=== PATIENT | female | born 1965 | race Caucasian/White ===

== ENCOUNTER 2017-05-19 06:48 | Emergency (ER) | payer BC ==
--- NOTE | 2017-05-19 07:49 | RAD ---
TWO VIEWS CHEST: Date: 05-19-17 Provided Clinical History: Right sided rib pain status post fall. FINDINGS: Comparison is made with the study dated 08-29-12. The cardiac silhouette is upper limits of normal in s ize. The lungs appear clear. There is no pleural fluid or pneumothorax apparent. Degenerative changes are seen involving the thoracic spine. IMPRESSION: No evidence for an acute cardiopulmonary process. POS: [facility]
[2017-05-19] MEDS ORDERED: Ketorolac Tromethamine 60 MG/2 ML VIAL ONE (09:21)
== END 2017-05-19 09:53 | disposition home or self-care (01) ==
LOC: ERS 06:48
DX: S20.211A Contusion of right front wall of thorax, initial encounter (principal); I10 Essential (primary) hypertension; F32.9 Major depressive disorder, single episode, unspecified; W01.190A Fall on same level from slipping, tripping and stumbling with subsequent striking against furniture, initial encounter
CPT/HCPCS: 71020; 96372; J1885

== ENCOUNTER 2017-09-18 21:18 | Observation (INO) | payer BC ==
[2017-09-18 21:55] LABS: #Eosinphils 0.3 thou/uL (0.0-0.7); #Monocytes 0.7 thou/uL (0.11-0.59); #Neutrophils 8.4 thou/uL (1.40-6.50); %Basophils 0.3 % (0.0-1.0); %Eosinophils 2.5 % (0.0-10.0); %Lymphocytes 24.4 % (21.0-51.0); %Monocytes 5.3 % (0.0-10.0); %Neutrophils 67.5 % (42.0-75.0); Hemoglobin 14.6 g/dL (12.0-16.0); Mean Corpuscular HGB CONC 34.2 g/dL (32.0-36.0); Mean Corpuscular Hemoglobin 29.4 pg (27.0-31.0); Mean Corpuscular Volume 85.8 fl (81.0-99.0); Mean Platelet Volume 7.8 fL (7.4-10.4); Platelet Count 232 thou/uL (130-400); RBC Distribution Width 13.5 % (11.5-14.5); Red Blood Cell (RBC) Count 4.96 mill/uL (4.20-5.40); White Blood Cell (WBC) Count 12.4 thou/uL (4.8-10.8)
[2017-09-18 22:16] LABS: ALT (SGPT) 16 U/L (8-55); AST (SGOT) 14 U/L (5-34); Alkaline Phosphatase 98 U/L (40-150); Anion Gap 15 mmol/L (10-20); BUN (Urea Nitrogen) 31 mg/dL (9.8-20.1); Bilirubin, Total 0.4 mg/dL (0.2-1.2); Calc. Creatinine Clearance 0 mL/min (70-130); Calcium 9.2 mg/dL (7.8-10.44); Carbon Dioxide 22 mmol/L (22-29); Chloride 107 mmol/L (98-107); Estimated GFR-MDRD 87; Globulin 3.1 g/dL (2.4-3.5); Glucose 146 mg/dL (70-105); Potassium 3.9 mmol/L (3.5-5.1); Protein, Total 7.1 g/dL (6.0-8.3); Sodium 140 mmol/L (136-145)
[2017-09-18 22:21] LABS: CKMB 1.1 ng/mL (0-6.6); Troponin I Less than 0.010 ng/mL (< 0.028)
--- NOTE | 2017-09-18 22:21 | RAD ---
PORTABLE CHEST ONE VIEW 09/18/17 at 9:59 p.m. HISTORY: Chest pain. FINDINGS: Comparison made with exam of 12/15/13. The heart size is borderline. No focal areas of consolidation, pneumothorax, phyllis pulmonary edema or pleural effusions are seen. IMPRESSION: No radiographic evidence of acute cardiopulmonary process. POS: [facility]
[2017-09-18 22:57] LABS: BHCG - Serum Negative (NEGATIVE); Pregs Control Background? CLEAR/WHITE (CLR/WHITE); Pregs Control Bar Appear? YES (CONTROL BAR)
[2017-09-19] MEDS ORDERED: Ondansetron PF 4 MG/2 ML Vial IVP PRN (01:04)
[2017-09-19] MEDS ORDERED: Acetaminophen 325 MG TAB PO PRN (01:04)
[2017-09-19] MEDS ORDERED: Ondansetron ODT 4 MG TAB SL PRN (01:04)
[2017-09-19 01:34] VITALS: BMI 51.2
[2017-09-19 02:01] LABS: Troponin I Less than 0.010 ng/mL (< 0.028)
[2017-09-19 05:18] LABS: Troponin I Less than 0.010 ng/mL (< 0.028)
[2017-09-19 12:08] VITALS: BP 135/80; TEMP 97.6
--- NOTE | 2017-09-20 23:23 | SS ---
DATE OF ADMISSION: 09/18/2017 CHIEF COMPLAINT: Chest palpitations. HISTORY OF PRESENT ILLNESS: This is a 52-year-old female, patient of Dr. Kin Etienne, wh o came to the emergency room after having a spontaneous onset of palpitations with facial numbness. She was at [facility] and noticed that her chest was feeling strange, felt lot of palpitations, and then she started to feel her face from her nose over to her ear left side was numb and that started to sc are her, so she came to the emergency room. On note, she said she was told she was red from her clav icles up when she arrived. She notes that she had been on Augmentin for about 3 to 4 days for sinus infection and she said she has never been on Augmentin before, and so the emergency room physician __ ___ EKG and has numerous PVCs and decided to have her admitted for chest pain rule out. PAST MEDICAL HISTORY: She has hypertension, chronic depression and morbid obesity. PAST SURGICAL HISTORY: She has had a total abdominal hysterectomy in 2007, inguinal hernia repair in 1990, and a bilateral tubal ligation in 1985. ALLERGIES: She has no known drug allergies. MEDICATIONS: Valsartan and hydrochlorothiazide 325/12.5 takes 1 a day, Lasix 40 mg a day, Zoloft 100 mg a day and Wellbutrin 150 mg a day. FAMILY HISTORY: Father has hearing loss. Mother has coronary artery disease, had an OR, hypertensio n and type 2 diabetes. Of note, she has a son who was a Marine and has a traumatic brain injury as w ell as some PTSD. SOCIAL HISTORY: She is . 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 She has no alc ohol, tobacco or illicit drug use habits. REVIEW OF SYSTEMS: She denies any headache or visual changes. No trouble chewing or swallowing. Sh e denies any chest pain, shortness of breath or cough. She denies any nausea, vomiting, or abdominal pain. She notes no changes to bowel or bladder habits. No dysuria or hematuria. No melena, hemato chezia or bright red blood per rectum. She notes no paresis or paresthesias. She notes no changes t o her psych issues on and off again with depression, especially associated with her son, but she has not had any suicidal or homicidal ideations. She has not had any auditory or visual hallucinations. PHYSICAL EXAMINATION: GENERAL: She is sitting in bed, no acute distress. VITAL SIGNS: Temperature is 97.5, pulse 85, respirations 20, blood pressure 139/42. HEENT: Shows normocephalic and atraumatic cranium with pupils that are equal, round, reactive to lig ht and accommodation. Extraocular movements are intact. Mucous membranes are moist. Her maxillary sinuses are nontender to palpation. NECK: Supple. No JVD. No bruits. No thyromegaly. LUNGS: Clear to auscultation bilaterally. HEART: S1, S2 with no rubs, murmurs, gallops, heaves or lifts. ABDOMEN: Obese, soft, nontender and nondistended. GENITOURINARY: Deferred. NEUROLOGIC: She is alert and oriented x4. No acute distress. Cranial nerves II-XII are equal and s ymmetrical. Motor and sensory are intact. No deficits noted. LABORATORY DATA: White count 12.4, hemoglobin and hematocrit are 14 and 42 respectively with 232,000 platelets. Sodium is 140, potassium 3.9, chloride 107, bicarb 22, BUN creatinine 0.7, glucose 146. Troponin is undetectable x3. CK-MB is 1.1. IMAGING: Chest x-ray is negative for any pathology. EKG showed PVCs. ASSESSMENT: Premature ventricular contractions with negative cardiac ischemic work up. Plan is to d ischarge home, possible Augmentin as the etiology. PLAN: We had the stopped the Augmentin and changed to a daily or twice a day nasal lavage. We will start also metoprolol 25 mg daily and have her follow up with Dr. Etienne in one week.
--- NOTE | 2017-09-20 23:38 | DIS ---
DATE OF ADMISSION: 09/18/2017 DATE OF DISCHARGE: 09/19/2017 ADMITTING DIAGNOSIS: Premature ventricular contractions. DISCHARGE DIAGNOSIS: Premature ventricular contractions with negative chest pain rule out. HOSPITAL COURSE: A 52-year-old female, patient of Dr. Kin Etienne, came in when she got worried about having chest palpitations along with feeling left side of her face feeling a little num b. Workup is essentially negative other than PVCs. Working theory Augmentin that she has callie vogt been on before, irritating heart, so she was being sent home. The plan is to stop the Augmentin an d changed to the daily or twice a day lavage since she had no longer has any sinus symptoms, as well as add metoprolol ER 25 mg daily and continue her regular home meds of the valsartan and hydrochlorot hiazide 325/12.5, Lasix 40 mg daily, Zoloft 100 mg daily, Wellbutrin 150 mg daily, and she will see Colton Etienne in a week.
--- NOTE | 2017-11-06 15:29 | EKG ---
Test Reason : Blood Pressure : / mmHG Vent. Rate : 096 BPM Atrial Rate : 096 BPM P-R Int : 148 ms QRS Dur : 100 ms QT Int : 386 ms P-R-T Axes : 033 -30 038 degrees QTc Int : 487 ms Sinus rhythm with frequent Premature ventricular complexes Left axis deviation Minimal voltage criteria for LVH, may be normal variant Prolonged QT No STEMI Abnormal ECG Confirmed by FRANDY HELTON ([id number]), international editorial producer JOEL STONE ([id number]) on 11/06/2017 3:29:07 PM Referred By: Confirmed By:FRANDY HELTON
== END 2017-09-19 14:17 | disposition home or self-care (01) ==
LOC: ERS 21:18 → 2SW 23:00
PROVIDERS: ADMIT Family Medicine; ATTEND Family Medicine
DX: I49.3 Ventricular premature depolarization (principal); R20.0 Anesthesia of skin; I10 Essential (primary) hypertension; F32.9 Major depressive disorder, single episode, unspecified; E66.01 Morbid (severe) obesity due to excess calories; Z68.43 Body mass index [BMI] 50.0-59.9, adult; Z79.899 Other long term (current) drug therapy
CPT/HCPCS: 36415; 71045; 80053; 82553; 84484; 84703; 85025; 85379; 93005; G0378

== ENCOUNTER 2023-04-03 18:13 | Inpatient (IN) | payer BC ==
[2023-04-03 18:48] LABS: #Basophils 0.1 thou/uL (0.0-0.2); #Eosinphils 0.3 thou/uL (0.0-0.7); #Monocytes 0.8 thou/uL (0.11-0.59); #Neutrophils 7.4 thou/uL (1.40-6.50); %Basophils 0.5 % (0.0-1.0); %Eosinophils 2.6 % (0.0-10.0); %Lymphocytes 22.6 % (21.0-51.0); %Monocytes 7.2 % (0.0-10.0); %Neutrophils 66.6 % (42.0-75.0); Hematocrit 46.5 % (36.0-47.0); Hemoglobin 14.9 g/dL (12.0-16.0); Mean Corpuscular Hemoglobin 28.7 pg (27.0-31.0); Mean Corpuscular Volume 89.6 fl (78.0-98.0); Mean Platelet Volume 10.8 fL (7.4-10.4); Platelet Count 260 10x3/uL (130-400); RBC Distribution Width 13.8 % (11.5-14.5); Red Blood Cell (RBC) Count 5.19 mill/uL (4.20-5.40)
[2023-04-03 19:05] LABS: ALT (SGPT) 14 U/L (8-55); AST (SGOT) 13 U/L (5-34); Albumin 4.1 g/dL (3.5-5.0); Alkaline Phosphatase 88 U/L (40-110); Anion Gap 16 mmol/L (10-20); BUN (Urea Nitrogen) 18 mg/dL (9.8-20.1); Bilirubin, Total 0.5 mg/dL (0.2-1.2); Calc. Creatinine Clearance 0 mL/min (70-130); Calcium 9.3 mg/dL (7.8-10.44); Carbon Dioxide 25 mmol/L (22-29); Chloride 102 mmol/L (98-107); Estimated GFR 90; Globulin 2.6 g/dL (2.4-3.5); Glucose 216 mg/dL (70-105); Lipase 33 U/L (8-78); Potassium 3.6 mmol/L (3.5-5.1); Protein, Total 6.7 g/dL (6.0-8.3); Sodium 139 mmol/L (136-145)
[2023-04-03 19:10] LABS: Troponin I Less than 0.010 ng/mL (< 0.028)
[2023-04-03] MEDS ORDERED: Magnesium 2 GM/50 ML BAG (IN WATER) ONE (19:15)
[2023-04-03] MEDS ORDERED: Acetaminophen 325 MG TAB PO PRN (21:20)
[2023-04-03] MEDS ORDERED: Ondansetron PF 4 MG/2 ML Vial IVP PRN (21:20)
[2023-04-03] MEDS ORDERED: Dextrose 5% in Water 1,000 ML IV PRN (21:22)
[2023-04-03] MEDS ORDERED: HumaLOG 300 UNITS/3 ML VIAL SC PRN ×2 (21:22)
[2023-04-03] MEDS ORDERED: Dextrose 50% Abboject 50 ML SYRINGE SLOW IVP PRN (21:22)
[2023-04-03] MEDS ORDERED: Glucagon 1 MG/ML KIT IM PRN (21:22)
[2023-04-03] MEDS ORDERED: Metoprolol Tartrate 25 MG TAB PO SCH (21:30)
[2023-04-03] MEDS ORDERED: Aspirin Chewable 81 MG TAB ONE (21:38)
[2023-04-03 21:51] LABS: Magnesium 1.9 mg/dL (1.6-2.6)
[2023-04-03 22:35] LABS: Amphetamine Not Detected (NotDetected); Barbiturates Screen Not Detected (NotDetected); Benzodiazepine Screen Not Detected (NotDetected); Cocaine Metabolite Screen Not Detected (NotDetected); Methadone Not Detected (NotDetected); Methamphetamine Not Detected (NotDetected); Opiate Screen Not Detected (NotDetected); Oxycodone Screen Not Detected (NotDetected); Phencyclidine (PCP) Not Detected (NotDetected); THC/Cannabinoid Screen Not Detected (NotDetected); Tricyclic Screen Not Detected (NotDetected)
[2023-04-03 22:48] LABS: Troponin I Less than 0.010 ng/mL (< 0.028)
[2023-04-03] MEDS ORDERED: Metoprolol Tartrate 25 MG TAB ONE (23:49)
[2023-04-04 02:03] LABS: Troponin I Less than 0.010 ng/mL (< 0.028)
[2023-04-04 04:57] VITALS: BMI 54.3
[2023-04-04 05:45] LABS: #Basophils 0.1 thou/uL (0.0-0.2); #Eosinphils 0.3 thou/uL (0.0-0.7); #Monocytes 0.7 thou/uL (0.11-0.59); #Neutrophils 6.4 thou/uL (1.40-6.50); %Basophils 0.6 % (0.0-1.0); %Eosinophils 2.6 % (0.0-10.0); %Lymphocytes 26.5 % (21.0-51.0); %Monocytes 7.1 % (0.0-10.0); %Neutrophils 62.6 % (42.0-75.0); Hematocrit 44.2 % (36.0-47.0); Hemoglobin 14.3 g/dL (12.0-16.0); Mean Corpuscular HGB CONC 32.4 g/dL (32.0-36.0); Mean Corpuscular Hemoglobin 28.8 pg (27.0-31.0); Mean Corpuscular Volume 89.1 fl (78.0-98.0); Mean Platelet Volume 11.2 fL (7.4-10.4); Platelet Count 226 10x3/uL (130-400); RBC Distribution Width 14.3 % (11.5-14.5); Red Blood Cell (RBC) Count 4.96 mill/uL (4.20-5.40); White Blood Cell (WBC) Count 10.2 10x3/uL (4.8-10.8)
[2023-04-04 05:51] LABS: Hemoglobin A1c 7.4 % (4.0-6.0)
[2023-04-04 06:16] LABS: Anion Gap 14 mmol/L (10-20); BUN (Urea Nitrogen) 17 mg/dL (9.8-20.1); Calc. Creatinine Clearance 225 mL/min (70-130); Calcium 9.3 mg/dL (7.8-10.44); Carbon Dioxide 24 mmol/L (22-29); Cardiac Risk 5.6 (Less than 4.5); Chloride 105 mmol/L (98-107); Cholesterol 186 mg/dl (< 200 Desired); Estimated GFR 101; Glucose 167 mg/dL (70-105); HDL Cholesterol 33 mg/dL (>60 Neg Risk); LDL Cholesterol, Calculated 127 mg/dL; Magnesium 2.4 mg/dL (1.6-2.6); Potassium 3.4 mmol/L (3.5-5.1); Sodium 140 mmol/L (136-145); Triglycerides 131 mg/dL (Less than 150)
[2023-04-04] MEDS ORDERED: Metoprolol Tartrate 25 MG TAB ONE (08:45)
[2023-04-04] MEDS ORDERED: Furosemide 40 MG TAB ONE (08:45)
[2023-04-04] MEDS ORDERED: Losartan 25 MG TAB ONE (08:53)
[2023-04-04] MEDS ORDERED: Metoprolol Tartrate 25 MG TAB PO SCH (09:00)
[2023-04-04] MEDS: Empagliflozin 25 MG TAB PO SCH (09:26)
[2023-04-04] MEDS: Losartan 25 MG TAB PO SCH (09:27)
[2023-04-04] MEDS: Hydrochlorothiazide 25 MG TAB PO SCH (09:27)
[2023-04-04] MEDS: Furosemide 40 MG TAB PO SCH ×2 (09:27→14:26)
[2023-04-04] MEDS ORDERED: Potassium Chloride 20 MEQ TAB PO SCH (10:15)
[2023-04-05 06:32] LABS: #Basophils 0.1 thou/uL (0.0-0.2); #Eosinphils 0.3 thou/uL (0.0-0.7); #Monocytes 0.6 thou/uL (0.11-0.59); #Neutrophils 5.9 thou/uL (1.40-6.50); %Basophils 0.7 % (0.0-1.0); %Eosinophils 2.7 % (0.0-10.0); %Lymphocytes 30.8 % (21.0-51.0); %Monocytes 6.4 % (0.0-10.0); Hematocrit 45.3 % (36.0-47.0); Hemoglobin 14.7 g/dL (12.0-16.0); Mean Corpuscular HGB CONC 32.5 g/dL (32.0-36.0); Mean Corpuscular Hemoglobin 28.8 pg (27.0-31.0); Mean Corpuscular Volume 88.8 fl (78.0-98.0); Mean Platelet Volume 11.6 fL (7.4-10.4); Platelet Count 254 10x3/uL (130-400); RBC Distribution Width 14.3 % (11.5-14.5); White Blood Cell (WBC) Count 9.9 10x3/uL (4.8-10.8)
[2023-04-05 07:44] LABS: Anion Gap 15 mmol/L (10-20); BUN (Urea Nitrogen) 18 mg/dL (9.8-20.1); Calc. Creatinine Clearance 201 mL/min (70-130); Calcium 9.6 mg/dL (7.8-10.44); Carbon Dioxide 27 mmol/L (22-29); Chloride 103 mmol/L (98-107); Estimated GFR 92; Glucose 161 mg/dL (70-105); Magnesium 2.3 mg/dL (1.6-2.6); Potassium 3.2 mmol/L (3.5-5.1); Sodium 142 mmol/L (136-145)
[2023-04-05] MEDS: BuPROPion XL 150 MG ER.TAB PO SCH (09:13)
[2023-04-05] MEDS: Losartan 25 MG TAB PO SCH (09:13)
[2023-04-05] MEDS: Empagliflozin 25 MG TAB PO SCH (09:13)
[2023-04-05] MEDS: Hydrochlorothiazide 25 MG TAB PO SCH (09:13)
[2023-04-05] MEDS: Potassium Chloride 20 MEQ TAB PO SCH (16:48)
[2023-04-06 06:43] LABS: Magnesium 2.2 mg/dL (1.6-2.6)
[2023-04-06 07:35] VITALS: BP 114/58; TEMP 97.9
[2023-04-06] MEDS: Losartan 25 MG TAB PO SCH (08:15)
[2023-04-06] MEDS: BuPROPion XL 150 MG ER.TAB PO SCH (08:15)
[2023-04-06] MEDS: Hydrochlorothiazide 25 MG TAB PO SCH (08:15)
[2023-04-06] MEDS: Potassium Chloride 20 MEQ TAB PO SCH (08:15)
[2023-04-06] MEDS: Empagliflozin 25 MG TAB PO SCH (08:15)
[2023-04-06] MEDS: (Vortioxetine Hydrobromide [Trintellix] 10 MG Tablet) PO SCH (10:41)
[2023-04-06] MEDS ORDERED: Atorvastatin Calcium 20 MG TAB PO SCH (21:00)
== END 2023-04-06 11:50 | disposition home or self-care (01) | DRG 309 ==
LOC: ERS 18:13 → ERHOLD 21:00 → 2NO 04-04 14:11 → OBSVTOIN 04-05 12:17
PROVIDERS: ADMIT Internal Medicine; ATTEND Family Medicine
DX: I49.3 Ventricular premature depolarization (principal); Z68.43 Body mass index [BMI] 50.0-59.9, adult; E11.9 Type 2 diabetes mellitus without complications; I10 Essential (primary) hypertension; E87.6 Hypokalemia; E66.01 Morbid (severe) obesity due to excess calories; E78.5 Hyperlipidemia, unspecified; F41.9 Anxiety disorder, unspecified; F32.A Depression, unspecified; Z79.899 Other long term (current) drug therapy; Z79.84 Long term (current) use of oral hypoglycemic drugs; Z90.710 Acquired absence of both cervix and uterus; Z82.49 Family history of ischemic heart disease and other diseases of the circulatory system; Z98.890 Other specified postprocedural states
CPT/HCPCS: 36415; 36416; 71045; 78451; 80048; 80053; 80061; 80306; 83036; 83690; 83735; 83880; 84443; 84484; 85025; 93005; 93306; 96372; A9502; G0378; J1650; J1815; J3475

== ENCOUNTER 2023-04-08 08:00 | Outpatient (CLI) | payer BC ==
[2023-04-08] MEDS ORDERED: Regadenoson 0.4 MG/5 ML SYRINGE ONE (08:47)
== END 2023-04-08 08:01 | disposition home or self-care (01) ==
LOC: NM 08:00
DX: R07.9 Chest pain, unspecified (principal)
CPT/HCPCS: 78452; 93017; A9502; J2785